=== PATIENT | female | born 1995 | race Caucasian/White ===

== ENCOUNTER 2019-07-28 17:56 | Observation (INO) | payer OTHER, SELFPAY ==
[2019-07-28 18:25] VITALS: BMI 24.7
--- NOTE | 2019-07-28 21:05 | OBADM ---
This patient, Yanni Glass, admitted to the OB room Labor/Delivery/Recovery 103 for observation. Patient/family oriented to hospital policies and general routines including ID bracelet, bed and alarms, visiting hours, pain management, procedures, bathroom and other care routines, personal items, smoking policy, room service/diet, and visiting hours. Patient/Family are encouraged to report perceived risks to care and to ask questions if they do not understand what they are told or what they should do.
--- NOTE | 2019-08-20 10:17 | PM.OBTRLD ---
OB - Triage/Final Diagnosis Visit Information Date of evaluation: 07/28/19 Final Diagnosis (1) False labor: Code(s): O47.9 - False labor, unspecified Status: Acute
--- NOTE | 2019-08-20 17:04 | PM.OBTRLD ---
OB - Triage/Final Diagnosis Visit Information Date of evaluation: 07/28/19 Final Diagnosis (1) Nausea and vomiting: Code(s): R11.2 - Nausea with vomiting, unspecified Status: Acute
== END 2019-07-28 20:05 | disposition home or self-care (01) ==
PROVIDERS: Admitting Provider Obstetrics & Gynecology; Visit Provider Obstetrics & Gynecology
DX: O47.1 False labor at or after 37 completed weeks of gestation (principal); Z3A.38 38 weeks gestation of pregnancy
CPT/HCPCS: G0378; G0379

== ENCOUNTER 2019-08-06 05:55 | Inpatient (IN) | payer OTHER, SELFPAY ==
[2019-08-06] VITALS (80 sets, daily range): BP systolic 73–130; BP diastolic 26–85; PULSE 65–299; RESP 18; TEMP 36.7–36.9; O2SAT 98–100; BMI 24.8
--- NOTE | 2019-08-06 07:30 | WPDOBADMIT ---
Obstetrics - Admit Note Admission Note: record reviewed. No pertinent additions to the history and/or any subsequent changes in the physical findings that are not consistent with the expected course of the were found. Additions to the history and/or subsequent changes in the physical findings follow. G1 at 39+4 came in with c/o leaking fluid since 514 and found to have SROM. 2 cm dilated. GBS negative. She prefers to wait a few hours to start pitocin if labor not active by then, and that seems reasonable..
[2019-08-06 07:42] LABS: Basophils Absolute Auto 0.1 K/mm3 (0.0-0.1); Basophils Percent Auto 0.6 % (0.2-1.2); Eosinophils Percent Auto 0.5 % (0-4.4); Hematocrit 37.4 % (37.0-47.0); Hemoglobin 12.6 g/dL (12.0-15.0); Immature Granulocyte Absolute 0.06 K/mm3 (0.00-0.031); Immature Granulocyte Percent A 0.7 % (0-0.5); Lymphocytes Percent Auto 21.8 % (18.3-44.2); Mean Corpuscular HGB Conc 33.7 g/dl (32-36); Mean Corpuscular Hemoglobin 30.8 pg (26-34); Mean Corpuscular Volume 91.4 fl (80-100); Monocytes Absolute Auto 0.7 K/mm3 (0.1-0.6); Monocytes Percent Auto 8.3 % (2.6-8.5); Neutrophils Percent Auto 68.1 % (45.5-73.1); Platelet Count Result 255 k/mm3 (150-375); Red Blood Count 4.09 M/mm3 (4.2-5.4); Red Cell Distribution Width 12.5 % (11.5-14.5); White Blood Count 8.7 K/mm3 (4.5-10.0)
[2019-08-06] MEDS: LACTATED RINGERS 1,000 ML 125 ML IV CONT ×3 (09:25→20:53)
--- NOTE | 2019-08-06 12:38 | P.PNAN_ITS ---
Anes - Eval Pre Procedure Procedure: labor epidural Date/Time: 08/06/19 12:38 Surgeon: Jennifer Preop Diagnosis: Pain in labor Pre Op Diagnosis: r/o rupture Patient Data Age: 23 Gender: F Height: Weight: Last Vital Signs Temp 36.9 C 08/06/19 10:11 Pulse 88 08/06/19 11:32 BP 108/49 L 08/06/19 11:32 Allergies Allergy/AdvReac Type Severity Reaction Status Date / Time amoxicillin Allergy Unknown Verified 03/05/16 09:33 Home Medications Medication Instructions Recorded Confirmed Type PNV cmb#95-ferrous fumarate-FA 1 tablet PO DAILY 07/23/19 07/28/19 History [] Laboratory Tests 08/06/19 08/06/19 08/06/19 07:33 07:33 07:33 WBC 8.7 K/mm3 K/mm3 (4.5-10.0) RBC 4.09 M/mm3 L M/mm3 (4.2-5.4) Hgb 12.6 g/dL g/dL (12.0-15.0) Hct 37.4 % % (37.0-47.0) MCV 91.4 fl fl (80-100) MCH 30.8 pg pg (26-34) MCHC 33.7 g/dl g/dl (32-36) RDW 12.5 % % (11.5-14.5) Plt Count 255 k/mm3 k/mm3 (150-375) MPV 11.0 fl H fl (7.4-10.4) Immature Gran % (Auto) 0.7 % H % (0-0.5) Neut % (Auto) 68.1 % % (45.5-73.1) Lymph % (Auto) 21.8 % % (18.3-44.2) Branch % (Auto) 8.3 % % (2.6-8.5) Eos % (Auto) 0.5 % % (0-4.4) Baso % (Auto) 0.6 % % (0.2-1.2) Lymph # (Auto) 1.90 K/mm3 K/mm3 (0.9-3.2) Branch # (Auto) 0.7 K/mm3 H K/mm3 (0.1-0.6) Eos # (Auto) 0.0 K/mm3 K/mm3 (0-0.3) Baso # (Auto) 0.1 K/mm3 K/mm3 (0.0-0.1) Abs Immat Gran (auto) 0.06 K/mm3 H K/mm3 (0.00-0.031) Absolute Neuts (auto) 6.0 K/mm3 K/mm3 (1.3-6.7) Absolute Nucleated RBC 0.0 K/mm3 K/mm3 (0.0-0.012) Nucleated RBC % 0.0 % % (0.0-0.2) RPR Pending Blood Type A Positive Antibody Screen Negative Patient hx anesthesia problems: none Family hx anesthesia problems: none [facility] Past Medical History Medical History (Updated 08/06/19 @ 12:39 by Herb Herrera DO) Anxiety Scoliosis Family History Family History (Updated 07/23/19 @ 13:24 by Demarcus Ayers RN) Mother Breast cancer Social History Social History Smoking status: Never smoker Substance use: never Gender identity (if verbalized by the patient): Female Spiritual care concerns: No Exam Day of Procedure 08/06/19 12:39
[2019-08-06] MEDS: WITCH HAZEL 40 PADS 1 PAD TOPICAL (23:13)
[2019-08-06] MEDS: BENZOCAINE 20% AER SPR (*SP) 56 GM CAN 1 SPRAY TOPICAL (23:13)
[2019-08-06] MEDS: IBUPROFEN 600 MG TABLET PO (23:26)
[2019-08-06] MEDS: ACETAMINOPHEN 325 MG TABLET 650 MG PO (23:26)
--- NOTE | 2019-08-06 23:53 | PC.NURSE ---
2340 Pt to floor per wheelchair accompanied by baby in crib and staff. Plan of care and floor routines explained to pt and she voices understanding. Mom encouraged to make needs and concerns known to staff.
[2019-08-07 00:02] VITALS: BP 90/60; PULSE 77; RESP 12; TEMP 37.2
[2019-08-07 04:44] LABS: Hematocrit 32.3 % (37.0-47.0); Hemoglobin 11.1 g/dL (12.0-15.0)
--- NOTE | 2019-08-07 07:22 | PM.OBPRVD ---
OB - Delivery Note Procedure Delivery date: 08/06/19 Intrapartal events: None Induction method: per pitocin protocol Delivery monitor: external FHT and internal uterine Route of delivery: Laceration description: Periurethral - 1st Degree (bilateral) Delivery repair: vicryl Specimen: No Estimated blood loss (mL): 200 Anesthesia type: Epidural Disposition: other () [place] Baby Date of : 08/06/19 Time of : 20:19 Weeks of gestation at delivery: 39 Infant gender: Female Weight (pounds): 7 Weight (ounces): 12 presentation: vertex position: Left Occiput Anterior Placenta delivery description: Spontaneous cord vessel description: 3 Vessels and Around Body x1 score one minute: 8 score five minutes: 9 Narrative: compound presentation,posterior arm delivered with head, cord around body x 1. bleeding increased after placental delivery and 800mcg cytotec rectally placed.
--- NOTE | 2019-08-07 07:28 | PM.OBPNVD ---
OB - PN: Subj Subjective Date/time seen: 08/07/19 07:28 Patient comments: no complaints baby status: doing well [place] feeding status: exclusively breast feeding OB - PN: Obj Data Labs CBC & Chem 7: 08/07/19 04:13 Labs: Laboratory Results - last 24 hr 08/06/19 08/06/19 08/07/19 07:33 07:33 04:13 WBC 8.7 RBC 4.09 L Hgb 12.6 11.1 L Hct 37.4 32.3 L MCV 91.4 MCH 30.8 MCHC 33.7 RDW 12.5 Plt Count 255 MPV 11.0 H Immature Gran % (Auto) 0.7 H Neut % (Auto) 68.1 Lymph % (Auto) 21.8 [place] % (Auto) 8.3 Eos % (Auto) 0.5 Baso % (Auto) 0.6 Lymph # (Auto) 1.90 [place] # (Auto) 0.7 H Eos # (Auto) 0.0 Baso # (Auto) 0.1 Abs Immat Gran (auto) 0.06 H Absolute Neuts (auto) 6.0 Absolute Nucleated RBC 0.0 Nucleated RBC % 0.0 Blood Type A Positive Antibody Screen Negative OB - PN A/P Time Spent With Patient Time: Total time spent is greater than 50% in coordination of care (as documented) at patient's floor/unit and/or counseling patient:
--- NOTE | 2019-08-07 07:28 | PM.OBPNVD ---
OB - PN: Subj Subjective Date/time seen: 08/07/19 07:29 OB - PN: Obj Data Labs CBC & Chem 7: 08/07/19 04:13 Labs: Laboratory Results - last 24 hr 08/06/19 08/06/19 08/07/19 07:33 07:33 04:13 WBC 8.7 RBC 4.09 L Hgb 12.6 11.1 L Hct 37.4 32.3 L MCV 91.4 MCH 30.8 MCHC 33.7 RDW 12.5 Plt Count 255 MPV 11.0 H Immature Gran % (Auto) 0.7 H Neut % (Auto) 68.1 Lymph % (Auto) 21.8 [place] % (Auto) 8.3 Eos % (Auto) 0.5 Baso % (Auto) 0.6 Lymph # (Auto) 1.90 [place] # (Auto) 0.7 H Eos # (Auto) 0.0 Baso # (Auto) 0.1 Abs Immat Gran (auto) 0.06 H Absolute Neuts (auto) 6.0 Absolute Nucleated RBC 0.0 Nucleated RBC % 0.0 Blood Type A Positive Antibody Screen Negative OB - PN A/P Plan day: 1 Plan: routine care Time Spent With Patient Time: Total time spent is greater than 50% in coordination of care (as documented) at patient's floor/unit and/or counseling patient: Review of Systems Review of Systems: All systems reviewed & are unremarkable except as noted in HPI and below Constitutional: Constitutional: Reports as per HPI Cardiovascular: Cardiovascular: Reports as per HPI Gastrointestinal: Gastrointestinal: Reports as per HPI Exam Const: General: comfortable Resp: Effort & Inspection: normal respiratory effort Cardio: Rate: regular rate
--- NOTE | 2019-08-07 07:35 | PC.NURSE ---
Consulted with patient, mother states infant has been sleepy the last few feedings and is now awake and rooting. Reviewed infant feeding cues, frequencies, duration of feedings, feeding elimination flow sheet, and signs of adequate intake. Demonstrated stimulation techniques to wake for feeding. Assisted with infant to breast. Reviewed positioning/alignment in football, holding breast in C hold and guided asymmetrical latch on. was able to latch correctly. Infant nursed eagerly, with steady draws and frequent swallowing noted. Reviewed signs of a correct latch, effective nursing and suck swallow ratio. Infant was[able/unable] to maintain latch without discomfort to mother. Nipple care reviewed. suggested mother continue to hold breast during entire feeding to assist with maintaining deep latch and to stimulate to keep nursing effectively. Instructed mother to call out for RN assistance if she is unable to latch infant for feeding or she has discomfort with nursing. Instructed feeding should be initiated three hours from start of last feeding or if feeding cues are noted before. Mother voiced understanding of information shared.
[2019-08-07 08:00] VITALS: BP 102/63; PULSE 100; PULSE 74; RESP 12; RESP 18; TEMP 36.8; O2SAT 100
[2019-08-07 08:44] LABS: Rapid Plasma Reagin Non-Reactive (NonReactive)
[2019-08-07] MEDS: MULTIVIT/MIN/PREN/FOL AC/IRON TABLET 1 TAB PO (08:55)
[2019-08-07] MEDS: DOCUSATE SODIUM 100 MG CAPSULE PO ×2 (08:55→17:01)
[2019-08-07] MEDS: IBUPROFEN 600 MG TABLET PO ×2 (08:55→17:01)
--- NOTE | 2019-08-07 09:25 | P.PNAN_ITS ---
Anes-Prog Note L&D Date/Time: 08/07/19 09:25 Comfortable throughout: labor and delivery Neuraxial method: epidural Epidural/Spinal procedure site: clean & non-tender Neuro status: Neuro function grossly intact. Cardiovascular status: normal Respiratory status: normal Airway patency: baseline Mental status: baseline Post-Op hydration status: normal Vital Signs: Last Vital Signs Temp 37.2 C 08/07/19 00:02 Pulse 77 08/07/19 00:02 Resp 12 08/07/19 00:02 BP 90/60 L 08/07/19 00:02 Pulse Ox 100 08/06/19 19:54 Pain score (VAS): 0/10. Patient resting in bed at time of assessment, appears comfortable. Nurse geophysics teacher at bedside. I/O: Intake & Output 08/06/19 08/07/19 08/07/19 23:59 07:59 15:59 Intake Total 2100 Output Total 100 Balance 2000 Post-procedural complaints: none Patient feedback: Patient satisfied with anesthetic care.
--- NOTE | 2019-08-07 12:00 | PC.NURSE ---
Mother called out for assist with waking for feeding. Reviewed feeding cues, frequencies, duration of feedings, feeding elimination flow sheet, and signs of adequate intake. Advised to call out for assist at three hours. Demonstrated stimulation techniques to wake infant for feeding. Assisted with to breast. Reviewed positioning/alignment in football, holding breast in C hold and guided asymmetrical latch on. Infant was able to latch correctly. nursed eagerly, with steady draws and frequent swallowing noted. Reviewed signs of a correct latch, effective nursing and suck swallow ratio. was able to maintain latch without discomfort to mother. Nipple care reviewed. suggested mother continue to hold breast during entire feeding to assist with maintaining deep latch and to stimulate to keep infant nursing effectively. Instructed mother to call out for RN assistance if she is unable to latch for feeding or she has discomfort with nursing. Instructed feeding should be initiated three hours from start of last feeding or if feeding cues are noted before. Mother voiced understanding of information shared.
[2019-08-07 20:20] VITALS: BP 92/56; PULSE 75; RESP 16; TEMP 36.3; O2SAT 100
--- NOTE | 2019-08-07 20:20 | PC.NURSE ---
Patient viewed the discharge video Mother & Baby Care, The First Two Weeks . Patient was given the opportunity and encouraged to ask questions. Patient verbalized understanding of information shared and has been given the mother/baby guide for home reference.
[2019-08-08] MEDS: IBUPROFEN 600 MG TABLET PO ×3 (00:16→13:37)
[2019-08-08 07:31] VITALS: BP 104/63; PULSE 83; RESP 18; TEMP 36.7; O2SAT 95
[2019-08-08] MEDS: DOCUSATE SODIUM 100 MG CAPSULE PO ×2 (07:31→14:26)
[2019-08-08] MEDS: MULTIVIT/MIN/PREN/FOL AC/IRON TABLET 1 TAB PO (07:31)
[2019-08-08] MEDS: TETANUS,DIPHTHERIA,AC PERTUSSIS ADULT 0.5 ML (ADACEL) IM (07:35)
--- NOTE | 2019-08-08 09:53 | PM.OBPNVD ---
OB - PN: Subj Subjective Date/time seen: 08/08/19 09:53 OB - PN: Obj Data Labs CBC & Chem 7: 08/07/19 04:13 OB - PN A/P Plan day: 2 Plan: routine care, discharge home and other (F/U in 4 weeks) Time Spent With Patient Time: Total time spent is greater than 50% in coordination of care (as documented) at patient's floor/unit and/or counseling patient: Review of Systems Review of Systems: All systems reviewed & are unremarkable except as noted in HPI and below Exam Narrative: Exam Narrative: Fundus firm and vaginal flow controlled. Const: General: comfortable Chest: Breast/axilla inspection: normal inspection of the breasts Psych: Appearance: grossly normal Mental Status: mental status grossly normal Affect: normal affect Attitude: cooperative Judgement: Good judgement present (Psych)
--- NOTE | 2019-08-08 09:54 | PM.OBDSVD ---
DS: Diagnosis Discharge Diagnosis (1) Vaginal delivery: Code(s): O80 - Encounter for full-term uncomplicated delivery Status: Acute OB - DS: Summary Hospital Course Time spent discussing smoking cessation with patient: more than 10 minutes OB Procedures : None OB Procedures Intrapartum: Spontaneous Vag Delivery OB Procedures: : None Peripartum Data Infant Delivery Method: Natural Vaginal complications: none Status at Discharge Functional status at discharge: independent ambulation Overall status at discharge: patient is back to baseline Time Spent with Patient Time attestation: Total time spent providing and/or coordinating discharge services: Time spent: Less than 30 minutes Exam Const: General: comfortable and no acute distress Resp: Effort & Inspection: normal respiratory effort Cardio: Rate: regular rate Psych: Appearance: grossly normal Mental Status: mental status grossly normal Affect: normal affect Attitude: cooperative Thought content: Yes Normal thought content present Judgement: Good judgement present (Psych) Discharge Plan Discharge Attending physician on discharge: Mona Sweet Discharging Clinician: Marianela Oneill Patient Disposition: Home, Self-Care Activity: pelvic rest Diet: as tolerated Patient Instructions: Antibiotic Form Stand Alone Forms: General Discharge Information Follow-up/Referrals: Dorothy Rodriguez MD [Physician] - Discharge Medications: Continued PNV cmb#95-ferrous fumarate-FA [] 28 mg iron- 800 mcg Tablet 1 tablet PO DAILY RF: 0 Date of admission: 08/06/19 05:55 Primary Care Provider: UNKNOWN,DOCTOR Admitting Provider: Dorothy Rodriguez Attending physician on admission: Dorothy Rodriguez
[2019-08-08] MEDS: WITCH HAZEL 40 PADS 1 PAD TOPICAL (10:35)
--- NOTE | 2019-08-08 14:35 | PC.NURSE ---
1430 FOB arrived to take mother and baby home. Mother instructed OK to use OTC Ibuprofen tabs, 200 mg tabs, 3, every 6 hours as needed for pain.
[2019-08-10 10:36] VITALS: BP 96/60; PULSE 68; RESP 18; TEMP 36.5
== END 2019-08-08 14:30 | disposition home or self-care (01) | DRG 807 ==
LOC: ANHLDR 06:49 → ANHOB2 23:56
PROVIDERS: Advanced Practice Midwife; Admitting Provider Obstetrics & Gynecology; Visit Provider Obstetrics & Gynecology
DX: O32.6XX0 Maternal care for compound presentation, not applicable or unspecified (principal); Z37.0 Single live birth; Z3A.39 39 weeks gestation of pregnancy; Z23 Encounter for immunization; O71.82 Other specified trauma to perineum and vulva; O69.82X0 Labor and delivery complicated by other cord entanglement, without compression, not applicable or unspecified
CPT/HCPCS: 36415; 84112; 85014; 85018; 85025; 86592; 86850; 86900; 86901; 90715; A9270; J2590; J2795; J7120